=== PATIENT | female | born 2005 | race Caucasian/White ===

== ENCOUNTER 2023-10-16 16:32 | Emergency (ER) | payer MEDICAID ==
[~2023-10-16] VITALS: Ht 175.3 cm; Wt 79.1 kg
[2023-10-16] MEDS ORDERED: NS 1,000 ML IV SCH (17:00)
[2023-10-16] MEDS ORDERED: Ketorolac 30 MG/ML VIAL IV ONE (17:00)
[2023-10-16 17:17] LABS: BASO # 0.01 K/mm3 (0.02-0.10); HEMATOCRIT 44.8 % (35.0-45.0); HEMOGLOBIN 15.6 g/dL (12.0-15.0); LYMPH# 2.04 K/mm3 (1.20-3.40); MEAN CELL VOLUME 84 fl (78-95); MEAN CORPUSCULAR HEMOGLOBIN 29 pg (26-32); MEAN CORPUSCULAR HGB CONC 35 g/dL (33-37); MEAN PLATELET VOLUME 9.9 fl (7.4-10.4); MONO # 0.48 K/mm3 (0.10-0.60); NEU # 5.71 K/mm3 (1.40-6.50); PLATELET COUNT 303 K/mm3 (130-400); RED BLOOD COUNT 5.32 M/mm3 (4.10-5.30); WHITE BLOOD COUNT 8.3 K/mm3 (4.8-10.8)
[2023-10-16 17:21] LABS: ALBUMIN 5.1 g/dL (3.5-5.0)
[2023-10-16 17:22] LABS: CALCIUM 10.1 mg/dL (8.3-10.5)
[2023-10-16 17:25] LABS: TOTAL BILIRUBIN 0.6 mg/dL (0.2-1.2)
[2023-10-16] MEDS ORDERED: ZOFRAN ODT4 MG PO (17:40)
[2023-10-16 18:06] VITALS: BP 123/74
== END 2023-10-16 18:13 | disposition home or self-care (01) ==
LOC: ED 16:32
PROVIDERS: Physician Assistant
DX: U07.1 COVID-19 (principal); R11.2 Nausea with vomiting, unspecified
CPT/HCPCS: J1885; J2765; J7030